=== PATIENT | male | born 1945 | race Caucasian/White ===

== ENCOUNTER 2019-05-21 13:36 | Emergency (ER) | payer OTHER, MEDICAID ==
[~2019-05-21] VITALS: Ht 167.6 cm; Wt 68.0 kg
[2019-05-21 13:41] VITALS: BP_SYST 120
--- NOTE | 2019-05-21 13:44 | NUR ---
Patient to ER bed 04 to gown for evaluation. Side rails up.
--- NOTE | 2019-05-21 14:00 | NUR ---
ZEFERINO Skinner at bedside examining patient.
--- NOTE | 2019-05-21 14:05 | NUR ---
Pt presents to ED c/o anxiety.Pt has no acute distress noted at this time.
[2019-05-21] MEDS ORDERED: NACL 0.9% 1,000 ML IV ONE (14:15)
[2019-05-21] MEDS ORDERED: LORazepam 2 MG/ML VIAL (FOR ER USE) IVP ONE (14:15)
[2019-05-21 14:20] LABS: BASOPHILS # (AUTO) 0.1 K/uL (0.0-0.2); BASOPHILS % (AUTO) 0.8 % (0.0-2.0); EOSINOPHILS # (AUTO) 0.1 K/uL (0.0-0.4); EOSINOPHILS % (AUTO) 1.9 % (0.0-4.0); HEMATOCRIT 40.9 % (36-54); HEMOGLOBIN 13.9 g/dL (14.0-18.0); LYMPHOCYTES # (AUTO) 1.6 K/uL (1.0-5.5); LYMPHOCYTES % (AUTO) 25.1 % (20.5-51.5); MEAN CORPUSCULAR HEMOGLOBIN 33 pg (27-31); MEAN CORPUSCULAR HGB CONC 34 % (32-36); MEAN CORPUSCULAR VOLUME 98 fL (79.0-98.0); MONOCYTES # (AUTO) 0.5 K/uL (0.0-1.0); MONOCYTES % (AUTO) 7.2 % (1.7-9.3); NEUTROPHILS # (AUTO) 4.2 K/uL (1.8-7.7); PLATELET COUNT (AUTO) 203 K/uL (130-430); RED CELL DISTRIBUTION WIDTH 13.2 % (9.0-15.0); WHITE BLOOD COUNT (AUTO) 6.5 K/uL (4.8-10.8)
[2019-05-21 14:33] LABS: BILIRUBIN,URINE NEGATIVE (NEGATIVE); BLOOD, URINE NEGATIVE (NEGATIVE); CLARITY/URINE CLEAR (CLEAR); COLOR,URINE YELLOW (YELLOW); GLUCOSE,URINE NEGATIVE (NEGATIVE); KETONES,URINE NEGATIVE (NEGATIVE); LEUKOCYTE ESTERASE ,URINE NEGATIVE (NEGATIVE); NITRITE, URINE NEGATIVE (NEGATIVE); PROTEIN URINE NEGATIVE (NEGATIVE); UROBILINOGEN,URINE 0.2 (0.2-1.0)
[2019-05-21 14:47] LABS: ALANINE AMINOTRANSFERASE 35 U/L (12-78); ALBUMIN 3.5 g/dL (3.4-4.8); ASPARTATE AMINOTRANSFERASE 22 U/L (10-37); CALCIUM 9.1 mg/dL (8.4-11.0); CHLORIDE 102 mmol/L (98-107); CREATININE 1.04 mg/dL (0.55-1.30); GLUCOSE 111 mg/dL (70-99); POTASSIUM 4.4 mmol/L (3.5-5.1); SODIUM SERUM 140 mmol/L (136-145); THYROID STIMULATING HORMONE 1.89 uIu/mL (0.36-3.74); TOTAL BILIRUBIN 0.5 mg/dL (0.0-1.0); UREA NITROGEN, BLOOD 20 mg/dL (8-21)
--- NOTE | 2019-05-21 15:00 | NUR ---
Pt medicated tolerated well.
[2019-05-21 15:04] LABS: ANION GAP 11 (5-15)
--- NOTE | 2019-05-21 16:00 | NUR ---
Patient given written and verbal discharge instructions and verbalizes understanding. ER MD discussed with patient the results and treatment provided. Patient in stable condition. ID arm band removed. IV catheter removed intact and dressing applied, no active bleeding. Rx of Ativan given. Patient educated on pain management and to follow up with PMD. Pain Scale 0. Opportunity for questions provided and answered. Medication side effect fact sheet provided.
[2019-05-21 17:00] VITALS: BP_SYST 124
== END 2019-05-21 16:00 | disposition home or self-care (01) ==
LOC: SED 13:36
DX: F41.9 Anxiety disorder, unspecified (principal); G47.00 Insomnia, unspecified; R03.0 Elevated blood-pressure reading, without diagnosis of hypertension; F32.9 Major depressive disorder, single episode, unspecified; N40.0 Benign prostatic hyperplasia without lower urinary tract symptoms
CPT/HCPCS: 36415; 80053; 81003; 84439; 84443; 84484; 85025; 93005; 96374; 99284; J2060; J7030

== ENCOUNTER 2019-07-16 12:54 | Emergency (ER) | payer OTHER, MEDICAID ==
[~2019-07-16] VITALS: Ht 170.2 cm; Wt 68.0 kg
[2019-07-16 13:10] VITALS: BP_SYST 175
[2019-07-16] MEDS ORDERED: ASPIRIN 81 MG TAB.CHEW PO ONE (14:30)
[2019-07-16] MEDS ORDERED: NACL 0.9% 1,000 ML IV ONE (14:30)
[2019-07-16 14:37] LABS: BASOPHILS % (AUTO) 0.5 % (0.0-2.0); EOSINOPHILS % (AUTO) 0.3 % (0.0-4.0); HEMATOCRIT 42.7 % (36-54); HEMOGLOBIN 14.5 g/dL (14.0-18.0); LYMPHOCYTES # (AUTO) 1.1 K/uL (1.0-5.5); MEAN CORPUSCULAR HEMOGLOBIN 33 pg (27-31); MEAN CORPUSCULAR HGB CONC 34 % (32-36); MEAN CORPUSCULAR VOLUME 97 fL (79.0-98.0); MONOCYTES # (AUTO) 0.5 K/uL (0.0-1.0); MONOCYTES % (AUTO) 7.8 % (1.7-9.3); NEUTROPHILS # (AUTO) 5.1 K/uL (1.8-7.7); NEUTROPHILS % (AUTO) 75.4 % (40.0-70.0); PLATELET COUNT (AUTO) 183 K/uL (130-430); RED CELL DISTRIBUTION WIDTH 12.7 % (9.0-15.0); WHITE BLOOD COUNT (AUTO) 6.8 K/uL (4.8-10.8)
[2019-07-16 14:49] LABS: CHLORIDE 102 mmol/L (98-107); POTASSIUM 3.9 mmol/L (3.5-5.1); SODIUM SERUM 137 mmol/L (136-145)
[2019-07-16 14:50] LABS: ANION GAP 6 (5-15); CALCIUM 9.2 mg/dL (8.4-11.0); CREATININE 1.04 mg/dL (0.55-1.30); GLUCOSE 106 mg/dL (70-99); PROTHROMBIN TIME 9.9 SECS (9.5-12.5); UREA NITROGEN, BLOOD 31 mg/dL (8-21)
[2019-07-16 14:51] LABS: ALANINE AMINOTRANSFERASE 45 U/L (12-78); ALBUMIN 3.7 g/dL (3.4-4.8); ASPARTATE AMINOTRANSFERASE 30 U/L (10-37); TOTAL BILIRUBIN 0.2 mg/dL (0.0-1.0)
[2019-07-16] MEDS ORDERED: GABA-529 PO ×2 (15:42)
[2019-07-16] MEDS ORDERED: FINA5TAB3 PO (15:43)
[2019-07-16] MEDS ORDERED: ZOLP10TA2 PO (15:43)
[2019-07-16 15:45] LABS: BILIRUBIN,URINE NEGATIVE (NEGATIVE); BLOOD, URINE NEGATIVE (NEGATIVE); CLARITY/URINE CLEAR (CLEAR); COLOR,URINE YELLOW (YELLOW); GLUCOSE,URINE NEGATIVE (NEGATIVE); KETONES,URINE NEGATIVE (NEGATIVE); LEUKOCYTE ESTERASE ,URINE NEGATIVE (NEGATIVE); NITRITE, URINE NEGATIVE (NEGATIVE); PH,URINE 5.5 (5.0-8.0); PROTEIN URINE NEGATIVE (NEGATIVE); UROBILINOGEN,URINE 0.2 (0.2-1.0)
[2019-07-16] MEDS ORDERED: BUSP10TA3 PO ×2 (15:47)
[2019-07-16] MEDS ORDERED: PARO-63 PO (15:47)
[2019-07-16] MEDS ORDERED: ALPR0.25 PO (15:47)
[2019-07-16 16:40] VITALS: BP_SYST 130
== END 2019-07-16 16:40 | disposition home or self-care (01) ==
LOC: SED 12:54
DX: K29.70 Gastritis, unspecified, without bleeding (principal); R03.0 Elevated blood-pressure reading, without diagnosis of hypertension; F32.9 Major depressive disorder, single episode, unspecified; Z79.899 Other long term (current) drug therapy
CPT/HCPCS: 36415; 70450; 71045; 80053; 81003; 83605; 84484; 85025; 85610; 85730; 87040; 87086; 93005; 96360; 99284; J7030